=== PATIENT | male | born 1960 | race Hispanic/Latino ===

== ENCOUNTER 2017-12-08 06:09 | Observation (INO) | payer OTHER ==
[2017-12-05 09:02] VITALS: BMI 25.0
[2017-12-08] MEDS ORDERED: Lactated Ringer's 1,000 ML IV ONE ×3 (07:00→13:00)
[2017-12-08] MEDS ORDERED: Absorbable Gelatin Sponge Size 100 ONE (07:07)
[2017-12-08] MEDS ORDERED: Thrombin Topical 5,000 Int Units Spray Kit ONE (07:08)
[2017-12-08] MEDS ORDERED: Bupivacaine HCl 0.5% PF (30 ml) Inj ONE ×2 (07:08→15:25)
[2017-12-08] MEDS ORDERED: MethylPREDNISolone Depo 40 mg/ml Inj ONE (07:08)
[2017-12-08] MEDS ORDERED: Propofol 10 mg/ml Inj (20 ML) ONE ×7 (08:04→14:57)
[2017-12-08] MEDS ORDERED: Midazolam 2 MG/2 ML VIAL ONE (08:05)
[2017-12-08 08:13] LABS: HEMOGLOBIN 14.3 g/dL (12.0-18.0); MEAN CELL VOLUME 85.1 fl (80.0-94.0); MEAN CORPUSCULAR HEMOGLOBIN 29.3 pg (27.0-31.0); MEAN CORPUSCULAR HGB CONC 34.4 g/dL (33.0-37.0); RBC 4.89 Mil/uL (4.40-5.90); RED CELL DISTRIBUTION WIDTH 13.3 % (11.5-14.5); WHITE BLOOD COUNT 7.9 K/uL (4.8-10.8)
[2017-12-08] MEDS ORDERED: Succinylcholine 200 mg/10 ml Inj IV ONE (08:17)
[2017-12-08] MEDS ORDERED: Liquid Adhesive TOP ONE (08:47)
[2017-12-08] MEDS ORDERED: ePHEDrine 50 mg/ml Inj ONE ×2 (10:38→10:57)
[2017-12-08] MEDS ORDERED: Rocuronium 10 mg/ml (5 ml) ONE (11:01)
[2017-12-08] MEDS ORDERED: Vancomycin 1 g Inj IVPB ONE ×2 (11:05→15:00)
[2017-12-08] MEDS ORDERED: Sodium Chloride 0.9% 1,000 ML IV ONE (15:00)
[2017-12-08] MEDS ORDERED: Dexamethasone 4 mg/1 ml ONE (15:05)
[2017-12-08] MEDS ORDERED: HYDROmorphone 0.5 mg/0.5 ml ISec IVP PRN (15:55)
[2017-12-08] MEDS ORDERED: Morphine 4 MG/ML VIAL ONE (16:05)
--- NOTE | 2017-12-08 16:36 | CP.PCM.HP ---
History of Present Illness - History of Present Illness History of Present Illness: 57 yo male with long standing low back pain radiating to the left lower extremity had anterior and posterior lumbar fusion on L4-L5 and L5-S1 earlier today after failing conservative management. Present on Admission - Present on Admission Any Indicators Present on Admission: No History of DVT/PE: No History of Uncontrolled Diabetes: No Urinary Catheter: No Decubitus Ulcer Present: No Review of Systems - Review of Systems All systems: reviewed and no additional remarkable complaints except (aside from those mentioned above, 12 point stystem review were negative by me) Past Patient History - Tetanus Immunizations Tetanus Immunization: Unknown - Past Medical History & Family History Past Medical History?: Yes - Past Social History Smoking Status: Former Smoker Alcohol: None Drugs: Denies - CARDIAC Hx Cardiac Disorders: Yes Hx Hypertension: Yes (not on medication) - PULMONARY Hx Respiratory Disorders: No - NEUROLOGICAL Hx Neurological Disorder: No - HEENT Hx HEENT Problems: No - RENAL Hx Chronic Kidney Disease: No - ENDOCRINE/METABOLIC Hx Endocrine Disorders: No - HEMATOLOGICAL/ONCOLOGICAL Hx Blood Disorders: Yes Hx Hepatitis C: Yes (took hervoni) - INTEGUMENTARY Hx Dermatological Problems: No - MUSCULOSKELETAL/RHEUMATOLOGICAL Hx Musculoskeletal Disorders: Yes Hx Arthritis: Yes (neck) - GASTROINTESTINAL Hx Gastrointestinal Disorders: Yes Hx Gastritis: Yes - GENITOURINARY/GYNECOLOGICAL Hx Genitourinary Disorders: No - PSYCHIATRIC Hx Psychophysiologic Disorder: No - SURGICAL HISTORY Hx Surgeries: Yes Hx Appendectomy: Yes Hx Orthopedic Surgery: Yes (4 discs removed from neck) Hx Tonsillectomy: Yes Other/Comment: fx right leg-calcium ball removed - ANESTHESIA Hx Anesthesia: Yes Hx Anesthesia Reactions: No Hx Malignant Hyperthermia: No Has any member of the family had a problem w/ anesthesia?: No Meds Allergies/Adverse Reactions: Allergies Allergy/AdvReac Type Severity Reaction Status Date / Time acetaminophen Allergy VOMITING Verified 12/05/17 09:03 [From Tylenol-Codeine #3] codeine Allergy VOMITING Verified 12/05/17 09:03 [From Tylenol-Codeine #3] oxycodone Allergy VOMITING Verified 12/05/17 09:03 pregabalin [From Lyrica] AdvReac Intermediate FATIGUE Verified 12/08/17 07:26 Physical Exam - Constitutional Appears: No Acute Distress - Head Exam Head Exam: ATRAUMATIC - Eye Exam Eye Exam: absent: Scleral icterus - ENT Exam ENT Exam: Mucous Membranes Moist - Neck Exam Neck exam: Negative for: Meningismus - Respiratory Exam Respiratory Exam: NORMAL BREATHING PATTERN - Cardiovascular Exam Cardiovascular Exam: REGULAR RHYTHM, +S1 - GI/Abdominal Exam GI & Abdominal Exam: Soft. absent: Tenderness - Rectal Exam Rectal Exam: Deferred - Extremities Exam Extremities exam: Positive for: pedal pulses present - Neurological Exam Neurological exam: Alert, Oriented x3 - Psychiatric Exam Psychiatric exam: Normal Affect - Skin Skin Exam: Dry, Intact Results - Vital Signs Recent Vital Signs: Last Vital Signs Temp 97.7 F 12/08/17 07:00 Pulse 60 12/08/17 07:00 Resp 48 H 12/08/17 07:00 BP 130/88 12/08/17 07:00 Pulse Ox 97 12/08/17 07:00 - Labs Result Diagrams: 12/08/17 07:20 Labs: Laboratory Results - last 24 hr 12/08/17 12/08/17 12/08/17 06:20 07:20 09:25 WBC 7.9 RBC 4.89 Hgb 14.3 Hct 41.6 MCV 85.1 MCH 29.3 MCHC 34.4 RDW 13.3 Plt Count 183 Blood Type A POSITIVE Blood Type Confirm A POSITIVE Antibody Screen Negative BBK History Checked No verified bt Assessment & Plan - Assessment and Plan (Free Text) Assessment: 57 yo male with long standing low back pain radiating to the left lower extremity had anterior and posterior lumbar fusion on L4-L5 and L5-S1 earlier today after failing conservative management. 1. Lumbar Spondylosis post anterior and posterior spinal fusion L4-L5 and L5-S1 monitor in telemetry pain management with Morphine 2mg IV q 4hrs prn for pain refer to PT for evaluation and management
[2017-12-08] MEDS ORDERED: Pneumococcal 23-Valent Vaccine IM ONE (17:00)
[2017-12-08] MEDS: Lactated Ringer's 1,000 ML IV SCH (18:06)
[2017-12-09] MEDS ORDERED: Trimethobenzamide 200 mg/2 mL Inj IM ONE (01:50)
[2017-12-09] MEDS: Lactated Ringer's 1,000 ML IV SCH ×3 (02:15→22:30)
[2017-12-09 05:26] LABS: BASO # 0.1 K/uL (0.0-0.2); BASO % 0.3 % (0.0-2.0); HEMOGLOBIN 12.3 g/dL (12.0-18.0); LYMPH # 0.5 K/uL (1.0-4.3); LYMPH % 2.7 % (20.0-40.0); MEAN CELL VOLUME 84.9 fl (80.0-94.0); MEAN CORPUSCULAR HEMOGLOBIN 28.7 pg (27.0-31.0); MEAN CORPUSCULAR HGB CONC 33.8 g/dL (33.0-37.0); MEAN PLATELET VOLUME 10.5 fl (7.2-11.7); MONO # 1.1 K/uL (0.0-0.8); MONO % 6.7 % (0.0-10.0); NEUT # 15.2 K/uL (1.8-7.0); NEUT % 90.3 % (50.0-75.0); PLATELET COUNT 172 K/uL (130-400); WHITE BLOOD COUNT 16.8 K/uL (4.8-10.8)
[2017-12-09 06:26] LABS: BLOOD UREA NITROGEN 15 mg/dl (9-20); GFR AFRICAN-AMERICAN > 60; GFR NON-AFRICAN AMERICAN > 60
[2017-12-09 07:02] LABS: BANDS 1 % (0-2); LYMPHOCYTE 3 % (20-50); MONOCYTE 7 % (0-10); NEUTROPHIL 89 % (42-75); PLATELET ESTIMATE NORMAL (NORMAL); TOTAL CELLS COUNTED 100
[2017-12-09] MEDS ORDERED: Oxycodone/Acetaminophen 5/325 mg Tab PO PRN ×2 (08:53)
[2017-12-09] MEDS ORDERED: OMEPRAZOLE 20 MG PO SCH (09:00)
[2017-12-09] MEDS ORDERED: Morphine 10 mg/5 ml Oral Soln PO PRN (12:14)
[2017-12-09] MEDS: Morphine Sulfate 10 MG/0.5 ML SYR PO PRN ×3 (12:46→20:31)
--- NOTE | 2017-12-09 13:51 | CP.PCM.PN ---
Subjective - Date & Time of Evaluation Date of Evaluation: 12/09/17 Time of Evaluation: 10:00 - Subjective Subjective: Patient seen and examined bedside. Complaining of nausea and vomiting , multiple episodes since surgery .Has significant history of GERD with bleeding gastric ulcer and ruptured esophagus in the past.Complains of ;left sided abdominal wall pain where surgical incision with dressing is Hemodynamically stable, afebrile Objective - Vital Signs/Intake and Output Vital Signs (last 24 hours): Temp Pulse Resp BP Pulse Ox 98.2 F 70 20 125/75 99 12/09/17 12:24 12/09/17 12:24 12/09/17 12:24 12/09/17 12:24 12/09/17 12:24 - Medications Medications: Current Medications Docusate Sodium (Colace) 100 mg PO BID [facility] Last Admin: 12/09/17 12:46 Dose: 100 mg Home Med (Patient's Own Medication) 20 unit PO DAILY [facility] Last Admin: 12/09/17 09:42 Dose: 20 unit Lactated Ringer's (Lactated Ringer's) 1,000 mls @ 100 mls/hr IV .Q10H [facility] Last Admin: 12/09/17 12:50 Dose: 100 mls/hr Morphine Sulfate (Morphine Sulfate) 10 mg PO Q4 PRN PRN Reason: Pain, severe (8-10) Last Admin: 12/09/17 12:46 Dose: 10 mg Nicotine (Nicoderm Cq) 1 patch TD DAILY [facility] Last Admin: 12/09/17 12:48 Dose: Not Given Ondansetron HCl (Zofran Inj) 4 mg IVP Q6 PRN PRN Reason: Nausea/Vomiting Sucralfate (Carafate Tab) 1 gm PO DAILY [facility] Last Admin: 12/09/17 08:33 Dose: 1 gm Tramadol HCl (Ultram) 50 mg PO Q6 PRN PRN Reason: Pain, severe (8-10) - Labs Labs: 12/09/17 04:55 12/09/17 04:55 - Constitutional Appears: Non-toxic, No Acute Distress - Head Exam Head Exam: ATRAUMATIC, NORMAL INSPECTION, NORMOCEPHALIC - Eye Exam Eye Exam: EOMI, PERRL Pupil Exam: NORMAL ACCOMODATION - ENT Exam ENT Exam: Mucous Membranes Moist, Normal Exam - Neck Exam Neck Exam: Full ROM, Normal Inspection - Respiratory Exam Respiratory Exam: Clear to Ausculation Bilateral, NORMAL BREATHING PATTERN. absent: Rales, Rhonchi, Wheezes - Cardiovascular Exam Cardiovascular Exam: REGULAR RHYTHM, RRR, +S1, +S2. absent: JVD - GI/Abdominal Exam GI & Abdominal Exam: Soft, Normal Bowel Sounds. absent: Distended, Guarding, Rebound Additional comments: left abdomen surgical incision with dressing - Rectal Exam Rectal Exam: Deferred - Extremities Exam Extremities Exam: Full ROM, Normal Capillary Refill, Normal Inspection. absent : Pedal Edema - Back Exam Back Exam: NORMAL INSPECTION - Neurological Exam Neurological Exam: Alert, Awake, CN II-XII Intact, Oriented x3 - Psychiatric Exam Psychiatric exam: Normal Affect - Skin Skin Exam: Dry, Warm Assessment and Plan - Assessment and Plan (Free Text) Assessment: 57 yo male with long standing history of low back pain radiating to the left lower extremity had anterior and posterior lumbar fusion on L4-L5 and L5-S1 after failing conservative management.At present post op day 1 with intractable nausea and vomiting . 1. Lumbar Spondylosis- post Op # 1 anterior and posterior spinal fusion L4-L5 and L5-S1 discontinue NANOTECHNOLOGIST pump and start ultram and Morphine PRN. As per patient has significant side effects with codeine , percoset and the only pain medication he uses is Morphine PRN for pain PT consult incentive spirometry DVT prophylaxis Start stool softener 2. Intractable nausea and vomiting / GERD As per patient his GERD is acting up BS present, passing gas Zofran PRN for nausea Started Omeprazole and carafate his home medications start ambulation 3. Tobacco use disorder Nicotine patch 4.Leukocytosis most likely reactive post op repeat in AM 5.DVT prophylaxis and Lovenox
[2017-12-10] MEDS: Morphine Sulfate 10 MG/0.5 ML SYR PO PRN (05:49)
[2017-12-10 07:04] VITALS: TEMP 99.2; O2SAT 97
[2017-12-10 08:43] VITALS: BP 138/83; PULSE 83; RESP 18
[2017-12-10] MEDS ORDERED: Enoxaparin 40 mg Syringe SC SCH (09:00)
--- NOTE | 2017-12-10 09:43 | CP.PCM.DIS ---
Provider - Provider Date of Admission: 12/08/17 16:37 Attending physician: Ash Gomez MD Primary care physician: Nikolai Martins MD Consults: Dr. Martins- spine surgery PT/OT Time Spent in preparation of Discharge (in minutes): 25 Hospital Course - Lab Results Lab Results: Most Recent Lab Values WBC 16.8 K/uL (4.8-10.8) H D 12/09/17 04:55 RBC 4.30 Mil/uL (4.40-5.90) L 12/09/17 04:55 Hgb 12.3 g/dL (12.0-18.0) D 12/09/17 04:55 Hct 36.5 % (35.0-51.0) 12/09/17 04:55 MCV 84.9 fl (80.0-94.0) 12/09/17 04:55 MCH 28.7 pg (27.0-31.0) 12/09/17 04:55 MCHC 33.8 g/dL (33.0-37.0) 12/09/17 04:55 RDW 13.0 % (11.5-14.5) 12/09/17 04:55 Plt Count 172 K/uL (130-400) 12/09/17 04:55 MPV 10.5 fl (7.2-11.7) 12/09/17 04:55 Neut % (Auto) 90.3 % (50.0-75.0) H 12/09/17 04:55 Lymph % (Auto) 2.7 % (20.0-40.0) L 12/09/17 04:55 Morrill % (Auto) 6.7 % (0.0-10.0) 12/09/17 04:55 Eos % (Auto) 0.0 % (0.0-4.0) 12/09/17 04:55 Baso % (Auto) 0.3 % (0.0-2.0) 12/09/17 04:55 Neut # (Auto) 15.2 K/uL (1.8-7.0) H 12/09/17 04:55 Lymph # (Auto) 0.5 K/uL (1.0-4.3) L 12/09/17 04:55 Morrill # (Auto) 1.1 K/uL (0.0-0.8) H 12/09/17 04:55 Eos # (Auto) 0.0 K/uL (0.0-0.7) 12/09/17 04:55 Baso # (Auto) 0.1 K/uL (0.0-0.2) 12/09/17 04:55 Neutrophils % (Manual) 89 % (42-75) H 12/09/17 04:55 Band Neutrophils % 1 % (0-2) 12/09/17 04:55 Lymphocytes % (Manual) 3 % (20-50) L 12/09/17 04:55 Monocytes % (Manual) 7 % (0-10) 12/09/17 04:55 Platelet Estimate Normal (NORMAL) 12/09/17 04:55 Sodium 136 mmol/l (132-148) 12/09/17 04:55 Potassium 4.1 MMOL/L (3.6-5.0) 12/09/17 04:55 Chloride 99 mmol/L (98-107) 12/09/17 04:55 Carbon Dioxide 24 mmol/L (22-30) 12/09/17 04:55 Anion Gap 17 (10-20) 12/09/17 04:55 BUN 15 mg/dl (9-20) 12/09/17 04:55 Creatinine 0.8 mg/dl (0.8-1.5) 12/09/17 04:55 Est GFR ( Amer) > 60 12/09/17 04:55 Est GFR (Non-Af Amer) > 60 12/09/17 04:55 Random Glucose 146 mg/dL (75-110) H 12/09/17 04:55 Calcium 9.0 mg/dL (8.4-10.2) 12/09/17 04:55 Blood Type A POSITIVE 12/08/17 06:20 Blood Type Confirm A POSITIVE 12/08/17 09:25 Antibody Screen Negative 12/08/17 06:20 BBK History Checked No verified bt 12/08/17 06:20 - Hospital Course Hospital Course: 57 yo male with long standing history of low back pain radiating to the left lower extremity had anterior and posterior lumbar fusion on L4-L5 and L5-S1 after failing conservative management, with Dr. Martins, on 12/08/2017. The patient also has history of GERD and esophageal tear in the past. The patient was admitted to the hospitalist team postoperatively. On 12/09, the patient had episodes of intractable nonbloody nonbilious nausea and vomiting which resolved yesterday evening. Today, the patient states he feels much better. He has no complaints currently. He is being discharged to home in stable condition today and is to follow up with Dr. Martins on 12/12/2017. 1. Lumbar Spondylosis- post Op # 2, now being discharged in stable condition. anterior and posterior spinal fusion L4-L5 and L5-S1 Continue ultram and Morphine PRN outpatient- scripts given. As per patient has significant side effects with codeine , percoset and the only pain medication he uses is Morphine PRN for pain PT consult appreciated incentive spirometry continue stool softener while on narcotic pain medications 2. Intractable nausea and vomiting / GERD As per patient his GERD is acting up BS present, passing gas Zofran PRN for nausea Started Omeprazole and carafate his home medications Encourage ambulation as outpatient 3. Tobacco use disorder continue nicotine lozenges 4.Leukocytosis likely reactive from postop Afebrile with no sign of infection F/u with Dr. Martins Discharge Exam - Head Exam Head Exam: ATRAUMATIC, NORMAL INSPECTION, NORMOCEPHALIC - Additional Findings Additional findings: Physical exam: Constitutional- cooperative, awake, alert Head- NCAT, PERRL Eye- PERRL, EOMI ENT- normal exam, MMM. Neck- normal inspection, supple, no JVD Respiratory- CTAB, no wheezes rales rhonchi Cardiovascular- RRR, +S1, +S2 no MRG GI/Abdominal- normal bowel sounds, soft, no mass, no hsm Skin- warm, dry Extremities Exam- normal capillary refill, normal inspection Neurological Exam- surgical wound with minimal serosanguinous drainage, alert, awake, oriented, moves all 4 extremities, ambulatory Psych- normal mood, normal affect Discharge Plan - Discharge Medications Prescriptions: Docusate [Colace] 100 mg PO BID #20 cap Morphine Sulfate 10 mg PO Q4 PRN #20 cap PRN Reason: Pain, Severe (8-10) Sucralfate [Carafate] 1 gm PO DAILY #30 tablet traMADol [Ultram] 50 mg PO Q6 PRN #20 tab PRN Reason: Pain, Severe (8-10) - Follow Up Plan Condition: GOOD Disposition: HOME/ ROUTINE Instructions: Spinal Fusion Referrals: Nikolai Martins MD [Primary Care Provider] -
--- NOTE | 2017-12-11 08:51 | RAD ---
PROCEDURE: Intraoperative Fluoroscopy. HISTORY: LUMBAR FUSION FINDINGS: Fluoroscopic assistance was provided for lumbar spinal fusion. Please refer to the operative report from [facility]. 19.7 seconds of fluoroscopy was utilized with a total cumulative radiation dose of 7.90 mGy.
== END 2017-12-10 08:50 | disposition home or self-care (01) ==
LOC: H.OPSURG 06:09 → H.TEL 16:37 → INTOOBSV 16:37
DX: M51.17 Intervertebral disc disorders with radiculopathy, lumbosacral region (principal); Z72.0 Tobacco use; D72.829 Elevated white blood cell count, unspecified; K21.9 Gastro-esophageal reflux disease without esophagitis; Z88.6 Allergy status to analgesic agent; Z88.5 Allergy status to narcotic agent; M47.27 Other spondylosis with radiculopathy, lumbosacral region; M48.07 Spinal stenosis, lumbosacral region
CPT/HCPCS: 20930; 20939; 22558; 22585; 22630; 22632; 22853; 36415; 85025; 85027; 86850; 86900; C1713; G0378; J0131; J0330; J0690; J1030; J1100; J2001; J2250; J2270; J2274; J2405; J2704; J2765; J3010; J3250; J7030; J7120